=== PATIENT | female | born 1960 | race Caucasian/White ===

== ENCOUNTER 2016-07-27 18:19 | Emergency (ER) | payer OTHER ==
[~2016-07-27] VITALS: Ht 162.6 cm; Wt 109.1 kg
[2016-07-27 18:46] VITALS: BP 122/84; PULSE 83; RESP 20; O2SAT 98
--- NOTE | 2016-07-27 18:57 | ED.REPORT ---
HPI-Extremity Problem Lower Date of Service July 27, 2016 ED Provider: Lavell Winkler MD Patient is a 55 year old female who presents to the ED complaining of R ankle pain. She got her R foot stuck between 2 bricks, tripped, and fell to her R. She denies numbness, tingling, or any other symptoms. She last ate at 1430. Nursing Notes Stated Complaint: RIGHT ANKLE INJURY Chief Complaint: Extremity Trauma Nursing Notes Reviewed: Yes Allergies: Uncoded Allergies: NKA (Allergy, Unknown, 11/28/04) No Known Allergies (Allergy, Unknown, 11/28/04) General Time Seen by MD: 18:55 Chief Complaint Ankle injury right Hx Obtained From: Patient Arrived By: Walk-in Onset Occurred: Just prior to arrival Symptom Duration: Since onset Similar Sx Previous: No Past Medical History Past Medical History Reports: Obesity Past Surgical History Denies Smoking History Never Smoker Social History Other Social History: Good social support, Ambulatory Status Independent Review of Systems Review of Systems Note: -tingling Musculoskeletal: Reports: Joint pain (R ankle ) Neurologic: Denies: Numbness Complete sys rev & neg: except as marked. Physical Exam Initial Vital Signs Vital Signs (First) Date Time Temp Pulse Resp B/P Pulse Ox O2 Delivery O2 Flow Rate FiO2 07/27/16 18:46 36.8 83 20 122/84 98 Room Air Neck: Full range of motion Respiratory: Breath sounds normal, Clear to auscultation, No respiratory distress Cardiovascular: Regular rate & rhythm, Heart sounds normal Skin: Warm, Dry Neurologic: Alert, Oriented, Nonfocal Psychiatric: Mood/affect normal, Behavior normal, Normal thought content Lower Extremity / Pelvis / MS: Atraumatic, Inspection NL dorsalis pedis pulses intact. Right Ankle: Positive: Deformity present, Tenderness present... Interpretation & Diagnostics X-Ray Interpretation Xray Interpretation: IMPRESSION: 1. Posterior and lateral malleolar fractures. 2. Deltoid ligament tear. Dictated by: Baljit Inman M.D. on 07/27/2016 at 19:14 Approved by: Baljti Inman M.D. on 07/27/2016 at 19:15 X-Ray Ordered: Ankle right Interpretation / Wet Read by: Interpret - Radiologist Procedures Splint Application - Fx Mgt Splint Application- Fx Mgt: Stirrup splint Time: 20:00 Procedure Performed by: [facility] pract Type of Immobilization: Ortho-glass Definitive Fracture Care: Follow up > 4 days Post-Procedure / Complications: Cap refill normal, Post splint vascular nl, Post splint neuro nl, Tolerated procedure well, Patient stable Splint Post-Application Eval Extremity Condition: Cap refill < 2 sec, Distal sensation intact, Distal motor Intact, No compartment syndrome Re-Eval/Medical Decision Med Decision/Clinical Course Patient with mechanical ground-level fall. Right ankle bimalleolar fracture with deltoid tear. Neurovascularly intact. Reviewed images with orthopedics. Agreed with posterior and stirrup splint and follow-up with them in 2-3 days. Neurovascular intact post splint placement. Discharged home in good conditions with follow-up with orthopedics in 2 days. Re-Evaluation/Progress : Time of Eval: 20:02 Re-Evaluation/Progress Note: Discussed plan for discharge. Patient understands and agrees with plan. All questions addressed at this time. Consultation : Referral / Consult Name: Mac Bills MD Consulted With: Orthopedic Call Returned at: 19:59 Slate Mixer: Will see in office Note: Discussed patient's case and reviewd films. Stirrup splint and follow up in office in 2-3 days. Counseled Regarding: Diagnosis, Lab results, Need for follow-up, When/why to return to ED Discharge & Departure Impression: Primary Impression: Fracture, posterior malleolus Encounter type: initial encounter Fracture type: closed Laterality: right Qualified Code: S82.891A - Other fracture of right lower leg, initial encounter for closed fracture Additional Impression: Lateral malleolar fracture Encounter type: initial encounter Fracture type: closed Fracture alignment : displaced Laterality: right Qualified Code: S82.61XA - Displaced fracture of lateral malleolus of right fibula, initial encounter for closed fracture Disposition: Home Discharge Condition All VS Reviewed: Yes Condition: Improved Patient Instructions: Splint Care (ED) Additional Instructions: Thank you for entrusting us with your care. Call orthopedics tomorrow and make a follow up appointment for the next 2-3 days. Return to the emergency department if you experience numbness, tingling, increased pain, or any other new or worsening symptoms. Referrals: Marni Mcarthur MD (PCP) Mac Bills MD Scribe Attestation Portions of this note were transcribed by Dallin Lopez. I, Dr. Winklre personally performed the history, physical exam and medical decision-making; I reviewed and confirmed the accuracy of the information in the transcribed note. Signed by: Dallin Lopez 07/27/[id number] copies to: Marni Mcarthur MD, Ben M MD July 27, 2016 18:57 DALLIN LOPEZ July 27, 2016 19:16
--- NOTE | 2016-07-27 19:17 | DRSVH ---
PROCEDURE: X-RAY RIGHT ANKLE, MINIMUM THREE VIEWS ([id number]) INDICATIONS: INJURY TECHNIQUE: 3 views of the ankle were acquired. COMPARISON: None. FINDINGS: Bones: Moderately displaced oblique fracture of the distal fibula. Widening of the medial mortise. Mo derately displaced posterior malleolus fracture. Soft tissues: No tibiotalar joint effusion. Achilles tendon appears normal. IMPRESSION: 1. Posterior and lateral malleolar fractures. 2. Deltoid ligament tear. Dictated by: Baljit Inman M.D. on 07/27/2016 at 19:14 Approved by: Baljit Inman M.D. on 07/27/2016 at 19:15
[2016-07-27] MEDS ORDERED: HYDROcodone-APAP 10-325 mg PO ONE (20:05)
[2016-07-27] MEDS ORDERED: _HYDROcodone/APAP 5-325 mg Tablet PO PRN ×2 (20:40→20:50)
[2016-07-27 21:15] VITALS: BP 122/84; PULSE 83; RESP 20; O2SAT 98
== END 2016-07-27 21:16 | disposition home or self-care (01) ==
LOC: SED 18:19
DX: S82.891A Other fracture of right lower leg, initial encounter for closed fracture (principal); S82.61XA Displaced fracture of lateral malleolus of right fibula, initial encounter for closed fracture; W23.1XXA Caught, crushed, jammed, or pinched between stationary objects, initial encounter; W01.0XXA Fall on same level from slipping, tripping and stumbling without subsequent striking against object, initial encounter; Y93.01 Activity, walking, marching and hiking; Y99.8 Other external cause status; Y92.017 Garden or yard in single-family (private) house as the place of occurrence of the external cause